=== PATIENT | female | born 1955 | race Caucasian/White ===

== ENCOUNTER 2017-02-27 12:26 | Outpatient (CLI) | payer BC ==
--- NOTE | 2017-02-27 13:52 | RAD ---
CHEST TWO VIEWS: History: Dyspnea. Comparison: None. FINDINGS: Lungs are clear. No pneumothorax or effusion. Cardiac silhouette and mediastinal contours are within normal limits. IMPRESSION: No acute intrathoracic abnormality. POS: [facility]
== END 2017-02-27 12:27 | disposition home or self-care (01) ==
LOC: RAD 12:26
PROVIDERS: ATTEND Internal Medicine Critical Care Medicine
DX: R06.00 Dyspnea, unspecified (principal)
CPT/HCPCS: 71020; 77063; 77067; G0202

== ENCOUNTER 2019-03-28 07:35 | Outpatient (CLI) | payer BC ==
[2019-03-28] MEDS ORDERED: Iopamidol-370 76% 500 ML 1 ML ONE (10:16)
--- NOTE | 2019-03-28 10:16 | CT ---
CT ABDOMEN AND PELVIS WITH IV CONTRAST: Date: 03/28/2019 INDICATION: History of intestinal obstruction with anemia, fatigue, and weakness. COMPARISON: Right upper quadrant ultrasound dated 12/17/2014. FINDINGS: Lung bases are clear. There is mild fatty infiltration of the liver. There are calcified granuloma wi thin the spleen. Pancreas, adrenal glands, and kidneys appear within normal limits. No free fluid or enlarged lymph nodes are evident. There are moderate calcifications involving the abdominal aorta. Th ere is a small, fat-containing umbilical hernia. Reproductive structures are surgically absent. Appendix is surgically absent. The bladder, rectum, an d perirectal soft tissues are normal appearing. There is a mild amount of retained stool within the c olon. The small bowel is of normal caliber. No free fluid or enlarged lymph nodes are evident. No acute osseous abnormality is evident. IMPRESSION: 1. No acute abnormality seen. 2. Fatty liver. 3. Findings of prior granulomatous disease. 4. Moderate vascular calcifications of the abdominal aorta without aneurysmal dilatation. 5. Mild amount of retained stool within the colon. POS: [facility]
== END 2019-03-28 07:36 | disposition home or self-care (01) ==
LOC: BICCT 07:35
PROVIDERS: ATTEND Internal Medicine Gastroenterology
DX: K56.609 Unspecified intestinal obstruction, unspecified as to partial versus complete obstruction (principal); K76.0 Fatty (change of) liver, not elsewhere classified; I70.0 Atherosclerosis of aorta; K59.00 Constipation, unspecified
CPT/HCPCS: 74177; 82565

== ENCOUNTER 2019-05-21 10:49 | Outpatient (CLI) | payer BC ==
--- NOTE | 2019-05-21 13:43 | MMO ---
Bilateral MAMMO Bilat Screen [facility]. CLINICAL HISTORY: Patient is 64 years old and is seen for screening. The patient has no family history of breast cancer. The patient has no personal history of cancer. The patient has a history of left Excisional Biopsy - benign. VIEWS: The views performed were: bilateral craniocaudal with tomosynthesis and bilateral mediolateral oblique with tomosynthesis. FILMS COMPARED: The present examination has been compared to prior imaging studies performed at [facility] on 02/27/2017, and at [facility] on 12/08/2010, 09/08/2014 and 11/17/2015. This study has been interpreted with the assistance of computer-aided detection. MAMMOGRAM FINDINGS: There are scattered fibroglandular densities. There are no suspicious masses, suspicious calcifications, or new areas of architectural distortion. IMPRESSION: THERE IS NO MAMMOGRAPHIC EVIDENCE OF MALIGNANCY. A ROUTINE FOLLOW-UP MAMMOGRAM IN 1 YEAR IS RECOMMENDED. THE RESULTS OF THIS EXAM WERE SENT TO THE PATIENT. ACR BI-RADS Category 1 - Negative MAMMOGRAPHY NOTE: 1. A negative mammogram report should not delay a biopsy if a dominant of clinically suspicious mass is present. 2. Approximately 10% to 15% of breast cancers are not detected by mammography. 3. Adenosis and dense breasts may obscure an underlying neoplasm. Reported by: RICO MANCUSO MD Electonically Signed: [id number]
== END 2019-05-21 10:50 | disposition home or self-care (01) ==
LOC: BICMAMMO 10:49
PROVIDERS: ATTEND Family Medicine
DX: Z12.31 Encounter for screening mammogram for malignant neoplasm of breast (principal); Z91.89 Other specified personal risk factors, not elsewhere classified
CPT/HCPCS: 77063; 77067

== ENCOUNTER 2021-07-26 15:27 | Outpatient (CLI) | payer BC | END 2021-07-26 15:28 | disposition home or self-care (01) | LOC: BICMAMMO 15:27 | PROVIDERS: ATTEND Family Medicine | DX: Z12.31 Encounter for screening mammogram for malignant neoplasm of breast (principal); Z13.820 Encounter for screening for osteoporosis; M85.89 Other specified disorders of bone density and structure, multiple sites; Z85.828 Personal history of other malignant neoplasm of skin; Z91.89 Other specified personal risk factors, not elsewhere classified | CPT/HCPCS: 77063; 77067; 77080 ==

== ENCOUNTER 2021-10-19 14:03 | Outpatient (CLI) | payer BC | END 2021-10-19 14:04 | disposition home or self-care (01) | LOC: BICULT 14:03 | PROVIDERS: ATTEND Family Medicine | DX: N17.9 Acute kidney failure, unspecified (principal); N28.1 Cyst of kidney, acquired | CPT/HCPCS: 76770 ==

== ENCOUNTER 2023-05-25 08:53 | Outpatient (CLI) | payer BC | END 2023-05-25 08:54 | disposition home or self-care (01) | LOC: BICMAMMO 08:53 | PROVIDERS: ATTEND Family Medicine | DX: Z12.31 Encounter for screening mammogram for malignant neoplasm of breast (principal); Z80.3 Family history of malignant neoplasm of breast; Z85.828 Personal history of other malignant neoplasm of skin; Z91.89 Other specified personal risk factors, not elsewhere classified | CPT/HCPCS: 77063; 77067 ==